=== PATIENT | male | born 1975 | race Asian ===

== ENCOUNTER 2017-08-10 17:16 | Emergency (ER) | payer MEDICAID ==
[~2017-08-10] VITALS: Ht 162.6 cm; Wt 68.0 kg
[2017-08-10 17:36] VITALS: BP 162/99
--- NOTE | 2017-08-10 18:30 | NUR ---
PATIENT AMBULATED TO BED #9 WITH FAMILY. MONITORED
--- NOTE | 2017-08-10 18:40 | NUR ---
42 YO M TO ER FOR C/O HIGH BP AND DIZZYNESS X1 DAY.PT STATES DIZZYNESS STARTED AT WORK AROUND 8 AM, WITH N/V. PT DENIES ANY NASUEA AT THIS TIME. PT DENIES ANY DIARRHEA SOB, CP, FEVER, ABD PAIN OR COUGH AT THIS TIME. LS CLEAR THROUGHOUT , BS ACTIVE X4. NO OTHER MEDICAL C/O AT TIME. WILL CONTINUE TO MONITOR. PT POSITIONED FOR COMFORT. ER MD MADE AWARE
--- NOTE | 2017-08-10 19:15 | NUR ---
PT RESTING COMFORTABLY IN BED, RR EVEN AND UNLABORED, VSS, ALL NEEDS MET AT THIS TIME. Addendum: 08/10/17 at 2002 by STEPHEN RECEIVED REPORT FROM TATIANA VICKERS.
--- NOTE | 2017-08-10 20:23 | NUR ---
PT RESTING COMFORTABLY IN BED, RR EVEN AND UNLABORED, VSS, ALL NEEDS MET AT THIS TIME.
[2017-08-10 21:53] LABS: BASOPHILS # (AUTO) 0.1 K/uL (0.00-0.22); BASOPHILS % (AUTO) 0.7 % (0.0-2.0); EOSINOPHILS % (AUTO) 0.4 % (0.0-4.0); HEMATOCRIT 45.8 % (36-52); HEMOGLOBIN 15.5 g/dL (12.0-18.0); LYMPHOCYTES # (AUTO) 1.9 K/uL (2.0-11.5); LYMPHOCYTES % (AUTO) 15.7 % (20.5-51.1); MEAN CORPUSCULAR HEMOGLOBIN 30 pg (27-31); MEAN CORPUSCULAR HGB CONC 34 g/dL (33-37); MEAN CORPUSCULAR VOLUME 89.8 fL (80-94); MONOCYTES # (AUTO) 0.3 K/uL (0.8-1.0); MONOCYTES % (AUTO) 2.2 % (1.7-9.3); NEUTROPHILS # (AUTO) 9.7 K/uL (1.8-7.7); PLATELET COUNT (AUTO) 285 K/uL (140-450); RED BLOOD CELL COUNT(AUTO) 5.11 MIL/uL (4.20-6.10); RED CELL DISTRIBUTION WIDTH 12.9 % (11.6-13.7)
--- NOTE | 2017-08-10 21:57 | NUR ---
PT RESTING COMFORTABLY IN BED, RR EVEN AND UNLABORED, VSS, ALL NEEDS MET AT THIS TIME.
[2017-08-10 22:21] LABS: ANION GAP 11.8 (8-16); CARBON DIOXIDE 27.2 mmol/L (21-32); CREATININE 1.1 mg/dL (0.7-1.3)
[2017-08-10 22:22] LABS: ALBUMIN 4.2 g/dL (3.4-5.0); TOTAL BILIRUBIN 0.5 mg/dL (0.0-1.0)
[2017-08-10 22:25] LABS: CHOL/HDL RATIO 4.9 (1-4.5)
[2017-08-10 22:26] LABS: CREATINE KINASE MB 0.8 ng/mL (0-3.6)
[2017-08-10 23:05] VITALS: BP 140/90
--- NOTE | 2017-08-10 23:06 | NUR ---
Patient discharged with v/s stable. Written and verbal after care instructions given and explained. Patient alert, oriented and verbalized understanding of instructions. Ambulatory with steady gait. All questions addressed prior to discharge. ID band removed. Patient advised to follow up with PMD. Rx of LISINOPRIL, ZOCOR given. Patient educated on indication of medication including possible reaction and side effects. Opportunity to ask questions provided and answered.
== END 2017-08-10 22:59 | disposition home or self-care (01) ==
LOC: MED 17:16
DX: I10 Essential (primary) hypertension (principal); E78.00 Pure hypercholesterolemia, unspecified
CPT/HCPCS: 36415; 71045; 80053; 82550; 82553; 82948; 83036; 83880; 84484; 85025; 85379; 93005; 99285

== ENCOUNTER 2018-02-24 15:50 | Inpatient (IN) | payer MEDICAID, OTHER ==
[~2018-02-24] VITALS: Ht 160 cm; Wt 75.3 kg
[2018-02-24 16:01] VITALS: BP 119/76
--- NOTE | 2018-02-24 16:01 | NUR ---
PT AMBULATED TO ER BED 12
--- NOTE | 2018-02-24 16:10 | NUR ---
42Y/M BIB MOTHER W/ C/O RECTAL BLEEDING X THIS MORNING. PT STATES HE HAS NO PAIN AT THIS TIME. LBM EARLIER TODAY. PT ALSO STATES HIS BM HAS BEEN BLACK COLOR AND TODAY THERE WAS RED BLOOD. HX: HTN RX: DENIES
[2018-02-24] MEDS ORDERED: NACL 0.9% 1,000 ML IV SCH (18:01)
--- NOTE | 2018-02-24 18:02 | NUR ---
Patient being evaluated by physician at bedside.
[2018-02-24] MEDS ORDERED: PANTOPRAZOLE 40 MG INJ VIAL IVP ONE (18:05)
--- NOTE | 2018-02-24 18:07 | NUR ---
X-RAY AT BEDSIDE.
--- NOTE | 2018-02-24 18:15 | NUR ---
LAB AT BEDSIDE
[2018-02-24 18:25] LABS: BASOPHILS # (AUTO) 0.3 K/uL (0.00-0.22); BASOPHILS % (AUTO) 1.9 % (0.0-2.0); EOSINOPHILS # (AUTO) 0.3 K/uL (0-0.4); EOSINOPHILS % (AUTO) 1.9 % (0.0-4.0); LYMPHOCYTES # (AUTO) 2.3 K/uL (2.0-11.5); LYMPHOCYTES % (AUTO) 17.7 % (20.5-51.1); MEAN CORPUSCULAR HEMOGLOBIN 26 pg (27-31); MEAN CORPUSCULAR HGB CONC 31 g/dL (33-37); MEAN CORPUSCULAR VOLUME 83.4 fL (80-94); MONOCYTES % (AUTO) 7.9 % (1.7-9.3); NEUTROPHILS # (AUTO) 9.3 K/uL (1.8-7.7); NEUTROPHILS % (AUTO) 70.6 % (42.2-75.2); PLATELET COUNT (AUTO) 395 K/uL (140-450); RED BLOOD CELL COUNT(AUTO) 2.47 MIL/uL (4.20-6.10); RED CELL DISTRIBUTION WIDTH 16.7 % (11.6-13.7); WHITE BLOOD COUNT (AUTO) 13.2 K/uL (4.8-10.8)
[2018-02-24 18:30] LABS: HEMATOCRIT 20.6 % (36-52); HEMOGLOBIN 6.4 g/dL (12.0-18.0)
[2018-02-24] MEDS ORDERED: DEXT 5% / NACL 0.45% 1,000 ML IV SCH (18:44)
[2018-02-24] MEDS ORDERED: ONDANSETRON 4 MG/2 ML VIAL IVP PRN (18:45)
[2018-02-24 18:48] LABS: ALBUMIN 3.3 g/dL (3.4-5.0); ANION GAP 9.9 (8-16); CARBON DIOXIDE 28.4 mmol/L (21-32); CREATININE 1.1 mg/dL (0.7-1.3); POTASSIUM 4.3 mmol/L (3.5-5.1); TOTAL BILIRUBIN 0.1 mg/dL (0.0-1.0)
[2018-02-24 19:05] VITALS: BP 112/58
--- NOTE | 2018-02-24 19:05 | NUR ---
RECEIVED REPORT FROM ER NURSE AT BEDSIDE FOR CONTINUITY OF CARE. PT AAOX4. SPEAKS PERSI[place] AND [place]IL[place]. IV NOTED LAC 18G SALINE LOCK. AMBULATORY. NO SOB NO S/S OF DISTRESS ON RA. BED LOWERED PT ORIENTED TO ROOM. WILL CONTINUE TO MONITOR.
--- NOTE | 2018-02-24 19:05 | NUR ---
Patient will be admitted to care of DR. SALGADO. Admited to TELE FLOOR. Will go to room 111-B. Belongings list completed. Report to IKE BREWER.
[2018-02-24 19:07] LABS: PROTHROMBIN TIME 9.7 secs (10.8-13.4)
--- NOTE | 2018-02-24 20:23 | NUR ---
ER LET ME KNOW KARLIE ROBERTO MD IS UNABLE TO SIGN CONSENT D/T HE LEFT. SO THEY STATED I NEEDED A NEW ORDER. CALLED [employer] . [employer] GAVE ME CONSENT FOR 2 UNITS OF PRBC. WILL CONTINUE TO MONITOR.
[2018-02-24] MEDS: PANTOPRAZOLE 80 MG in NACL 0.9% 100 ML IV SCH (20:28)
--- NOTE | 2018-02-24 22:55 | NUR ---
STARTED 1 BAG OF 1 UNIT PRBC.
--- NOTE | 2018-02-25 02:40 | NUR ---
ENDED 1 BAG OF 1 UNIT PRBC NO REACTIONS WILL START NEW BAG.
[2018-02-25] MEDS: NACL 0.9% 500 ML IV SCH ×2 (03:40→06:51)
[2018-02-25 04:00] VITALS: BP 111/49
[2018-02-25] MEDS: PANTOPRAZOLE 80 MG in NACL 0.9% 100 ML IV SCH ×2 (04:50→15:05)
--- NOTE | 2018-02-25 06:40 | NUR ---
ENDED BLOOD TRANSFUSION 1 BAG 1 UNIT PRBC NO REACTION.
--- NOTE | 2018-02-25 07:10 | NUR ---
ENDORSED REPORT TO DAYSHIFT NURSE AT BEDSIDE FOR CONTINUITY OF CARE.
--- NOTE | 2018-02-25 07:11 | NUR ---
RECEIVED REPORT FROM WEARING APPAREL PRESSER NURSE. PT IN STABLE CONDITION. RESPIRATIONS EVEN AND UNLABORED. IV INTACT AND PATENT. SAFETY MEASURES IN PLACE. CALL LIGHT AT BEDSIDE. BED IN LOW POSITION. WILL CONTINUE TO MONITOR.
[2018-02-25 08:00] VITALS: BP 109/58
--- NOTE | 2018-02-25 08:14 | NUR ---
PATIENT HAS BEEN SCREENED AND CATEGORIZED MODERATE NUTRITION RISK. PATIENT WILL BE SEEN WITHIN 3-5 DAYS OF ADMISSION. 02/27/[address]
[2018-02-25 09:18] LABS: BASOPHILS # (AUTO) 0.1 K/uL (0.00-0.22); BASOPHILS % (AUTO) 0.9 % (0.0-2.0); EOSINOPHILS # (AUTO) 0.2 K/uL (0-0.4); EOSINOPHILS % (AUTO) 2.7 % (0.0-4.0); HEMATOCRIT 25.6 % (36-52); HEMOGLOBIN 8.2 g/dL (12.0-18.0); LYMPHOCYTES # (AUTO) 2.8 K/uL (2.0-11.5); LYMPHOCYTES % (AUTO) 30.7 % (20.5-51.1); MEAN CORPUSCULAR HEMOGLOBIN 27 pg (27-31); MEAN CORPUSCULAR HGB CONC 32 g/dL (33-37); MEAN CORPUSCULAR VOLUME 85.4 fL (80-94); MONOCYTES # (AUTO) 0.7 K/uL (0.8-1.0); MONOCYTES % (AUTO) 7.1 % (1.7-9.3); NEUTROPHILS # (AUTO) 5.4 K/uL (1.8-7.7); NEUTROPHILS % (AUTO) 58.6 % (42.2-75.2); PLATELET COUNT (AUTO) 324 K/uL (140-450); RED CELL DISTRIBUTION WIDTH 16.2 % (11.6-13.7); WHITE BLOOD COUNT (AUTO) 9.2 K/uL (4.8-10.8)
--- NOTE | 2018-02-25 09:21 | NUR ---
PT SIGNED CONSENT FORM FOR EGD AT THIS TIME. INTERNATIONAL GUEST COORDINATOR [employer] #[id number] USED AT THIS TIME.
[2018-02-25] MEDS ORDERED: fentaNYL 0.05 MG/ML VIAL ONE (09:23)
[2018-02-25] MEDS ORDERED: diphenhydrAMINE 50 MG/ML VIAL ONE (09:24)
[2018-02-25] MEDS ORDERED: MIDAZOLAM 2 MG/2 ML VIAL ONE (09:24)
--- NOTE | 2018-02-25 09:26 | NUR ---
PT LEAVING FLOOR FOR EGD PROCEDURE AT THIS TIME. PT IN STABLE CONDITION.
[2018-02-25] MEDS: NACL 0.9% 1,000 ML IV SCH ×2 (09:32→10:25)
[2018-02-25 09:44] LABS: ANION GAP 10.9 (8-16); CARBON DIOXIDE 28.8 mmol/L (21-32); CREATININE 1.1 mg/dL (0.7-1.3); POTASSIUM 4.7 mmol/L (3.5-5.1)
[2018-02-25] MEDS ORDERED: MIDAZOLAM 2 MG/2 ML VIAL IVP ONE (10:20)
[2018-02-25] MEDS ORDERED: fentaNYL 0.1 MG/HR PATCH TD SCH (10:20)
--- NOTE | 2018-02-25 10:30 | NUR ---
PT RETURNED FROM EGD PROCEDURE IN STABLE CONDITION. RESPIRATIONS EVEN AND UNLABORED. SAFETY MEASURES IN PLACE. CALL LIGHT AT BEDSIDE. BED IN LOW POSITION. WILL CONTINUE TO MONITOR.
--- NOTE | 2018-02-25 10:38 | NUR ---
CALLED DR. JULI CHAVEZ'S OFFICE AND SPOKE WITH SEVERINO FOR FOLLOW UP APPOINTMENT. SHE SAID THAT SINCE THIS PATIENT IS NOT AN ESTABLISHED PATIENT, THE EARLIEST APPOINTMENT WILL BE ON March AT 10:30A.M. OR THE PATIENT CAN BE A WALK IN AT THE [facility] AND ASK FOR DR. CHAVEZ. ADDRESS IS [address] [place] [id number] PHONE [phone]. MADE APPOINTMENT FOR Mar AT 10:30A.M. GAVE APPOINTMENT TO THE PATIENT.
[2018-02-25] MEDS ORDERED: fentaNYL 0.05 MG/ML VIAL IVP ONE (10:45)
[2018-02-25 12:00] VITALS: BP 109/58
--- NOTE | 2018-02-25 13:10 | NUR ---
PT LYING IN BED SLEEPING AT THIS TIME. RESPIRATIONS EVEN AND UNLABORED. WILL CONTINUE TO MONITOR.
[2018-02-25 16:00] VITALS: BP 110/56
[2018-02-25] MEDS ORDERED: FERR325E14 PO (16:57)
[2018-02-25] MEDS ORDERED: PANT40EC PO (16:57)
[2018-02-25] MEDS ORDERED: AMOX500C25 PO (16:59)
[2018-02-25] MEDS ORDERED: BIAXIN (17:01)
[2018-02-25] MEDS ORDERED: METR250T2 PO (17:02)
--- NOTE | 2018-02-25 17:45 | NUR ---
GAVE DISCHARGE INSTRUCTIONS AND RX TO TAKE TO PHARMACY TO HAVE FILLED. PT VERBALIZED UNDERSTANDING OF INSTRUCTIONS. IV REMOVED LUMEN INTACT. ID BAND REMOVED. PT WHEELED TO LOBBY WHERE FAMILY WAITING WITH CAR. PT IN STABLE CONDITION.
== END 2018-02-25 18:05 | disposition home or self-care (01) | DRG 241 ==
LOC: MED 15:50 → MTU 18:47
PROVIDERS: ADMIT Hospitalist; ATTEND Hospitalist
PROC: 30233N1 Transfusion of Nonautologous Red Blood Cells into Peripheral Vein, Percutaneous Approach (ICD-10-PCS; 2018-02-25)
PROC: 0DB68ZX Excision of Stomach, Via Natural or Artificial Opening Endoscopic, Diagnostic (ICD-10-PCS; principal; 2018-02-25 09:30)
DX: K26.0 Acute duodenal ulcer with hemorrhage (principal); R65.10 Systemic inflammatory response syndrome (SIRS) of non-infectious origin without acute organ dysfunction; E44.1 Mild protein-calorie malnutrition; B96.81 Helicobacter pylori [H. pylori] as the cause of diseases classified elsewhere; D64.9 Anemia, unspecified; K92.1 Melena; I10 Essential (primary) hypertension
CPT/HCPCS: 36415; 71045; 80048; 80053; 83735; 85025; 85610; 85730; 86677; 86886; 86900; 86901; 86920; 87081; 93005; 96374; 99285; C9113; J1200; J2250; J3010; J7030; P9016